=== PATIENT | male | born 1985 | race Caucasian/White ===

== ENCOUNTER 2019-05-18 14:35 | Emergency (ER) | payer OTHER, BC, SELFPAY ==
[2019-05-18 14:52] VITALS: BP 121/66; PULSE 66; RESP 18; TEMP 37.3; O2SAT 99
--- NOTE | 2019-05-18 14:59 | ED.GENADULT ---
HPI - General Adult General Chief complaint: Animal Bite Stated complaint: Dog Bite Time Seen by Provider: 05/18/19 14:59 Source: patient and RN notes reviewed Mode of arrival: ambulatory Limitations: no limitations History of Present Illness HPI narrative: 34-year-old male presents with complaints of animal bite to LT lower lateral leg approximately at 13:00 today. No treatment. Mild abrasions with discomfort, swelling, and redness. No pain. Denies tingling or numbness. Denies immobility. No exacerbating factors. No relieving factors. Denies altered sensation, back pain, neck pain, and suspected foreign body. Denies falling, hitting head, or loss of consciousness. Remains active. Juanjo says it has been greater than 5 years since his last Tetanus vaccine, will update today. 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 Some parts of this dictation were generated by voice recognition software and may contain typographical and/or grammatical inaccuracies. Related Data Allergies Allergy/AdvReac Type Severity Reaction Status Date / Time No Known Allergies Allergy Verified 05/18/19 15:04 Review of Systems Review of Systems: Narrative: CONSTITUTIONAL: Denies fever, chills, sweats. EYES: Denies visual changes, redness, discharge. ENT: Denies rhinorrhea, congestion, sore throat, otalgia. CARDIOVASCULAR: Denies chest pain, palpitations, edema. RESPIRATORY: Denies dyspnea, wheezing, cough. GASTROINTESTINAL: Denies abdominal pain, nausea, vomiting, diarrhea. GENITOURINARY: Denies dysuria, hematuria, abnormal discharge. SKIN: Denies rash or itching. Complains of animal bite to LT lower lateral leg with mild redness, swelling, discomfort. No drainage MUSCULOSKELETAL: Denies acute back pain, joint pain, or myalgia. NEUROLOGIC: Denies numbness or focal weakness. PSYCHIATRIC: Denies anxiety or depression. All other systems reviewed are negative, except as documented in HPI and below. [facility] Past Medical History Medical History (Updated 05/18/19 @ 15:23 by TAMEKA Hendrix) No significant past medical history Surgical History Surgical History (Updated 05/18/19 @ 15:23 by TAMEKA Hendrix) No significant past surgical history Family History Family History (Updated 05/18/19 @ 15:28 by TAMEKA Hendrix) Mother Diabetes mellitus Grandparent Diabetes mellitus Social History Social History (Updated 05/18/19 @ 15:25 by TAMEKA Hendrix) Smoking status: Former smoker Additional smoking assessment comments: Juanjo said he stopped smoking a year ago after smoking for about 5 years Alcohol intake: current Alcohol use details: Occasional Substance use: never Living arrangements: with family Occupation/Education: occupation 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 There is no relevant family history pertinent to the presenting complaint. Exam Narrative: Exam Narrative: GENERAL: This is a well-nourished, well-developed patient, in no apparent distress. Talks in full sentences without deficits and ambulates with steady gait without dyspnea. HEAD: normocephalic, atraumatic. EYES: PERRL. Sclera clear/white. Vision is grossly intact. CARDIOVASCULAR: Regular rate and rhythm without murmurs, gallops, or rubs. RESPIRATORY: Clear to auscultation. Breath sounds equal bilaterally. No wheezes, rales, or rhonchi. GASTROINTESTINAL: Abdomen soft, non-tender, nondistended. Bowel sounds are active. No hepato-splenomegaly, or palpable masses. No guarding. SKIN: warm, intact with no suspicious lesions or rash, good texture and turgor. NEURO: awake, alert, and oriented to person, place and time. There were no obvious focal neurologic abnormalities. EXTREMITIES: No clubbing, cyano
[2019-05-18] MEDS: TETANUS,DIPHTHERIA,AC PERTUSSIS ADULT 0.5 ML (ADACEL) IM (15:09)
== END 2019-05-18 15:29 | disposition home or self-care (01) ==
PROVIDERS: Emergency Provider Nurse Practitioner Family
DX: S80.812A Abrasion, left lower leg, initial encounter (principal); W54.0XXA Bitten by dog, initial encounter; Z87.891 Personal history of nicotine dependence; Z23 Encounter for immunization
CPT/HCPCS: 90471; 90715; 99203; G0463